=== PATIENT | male | born 1945 | race Caucasian/White ===

== ENCOUNTER 2017-05-03 14:25 | Emergency (ER) | payer OTHER ==
[2017-05-03 14:46] VITALS: BP 131/63
[2017-05-03] MEDS ORDERED: Lidocaine 1% 20 ML MDV INJECT ONE (14:48)
[2017-05-03] MEDS ORDERED: Bacitracin Oint 1 GM U/D Packet TOP ONE (14:48)
[2017-05-03] MEDS ORDERED: Diphtheria,Pertussis(Acell),Tetanus Vaccine 0.5 ML SDV IM ONE (14:51)
--- NOTE | 2017-05-03 15:02 | EDM.PDOC ---
ED HPI GENERAL MEDICAL PROBLEM - General Chief Complaint: Laceration Stated Complaint: CUT RT LEG W/CHAINSAW Time Seen by Provider: 05/03/17 14:59 Source of Information: Reports: Patient History Limitations: Reports: No Limitations - History of Present Illness INITIAL COMMENTS - FREE TEXT/NARRATIVE: pt was cutting wood and the saw slipped and he has a large cut above the rt knee. Onset: Today Duration: Hour(s): Location: Reports: Lower Extremity, Right Associated Symptoms: Reports: No Other Symptoms - Related Data Allergies Allergy/AdvReac Type Severity Reaction Status Date / Time No Known Allergies Allergy Verified 05/03/17 14:47 Home Meds: Home Meds Fenofibrate Nanocrystallized [Fenofibrate] 05/03/17 [History] Gabapentin [Neurontin] 05/03/17 [History] Levothyroxine 05/03/17 [History] Naproxen [Naproxen] 05/03/17 [History] Omeprazole [Omeprazole] 05/03/17 [History] Simvastatin [Zocor] 05/03/17 [History] Testosterone [Androgel] 05/03/17 [History] Past Medical History Cardiovascular History: Reports: High Cholesterol Endocrine/Metabolic History: Reports: Hypothyroidism Social & Family History - Tobacco Use Smoking Status *Q: Never Smoker ED ROS GENERAL - Review of Systems Review Of Systems: See Below Constitutional: Reports: No Symptoms HEENT: Reports: No Symptoms Respiratory: Reports: No Symptoms Endocrine: Reports: No Symptoms GI/Abdominal: Reports: No Symptoms : Reports: No Symptoms Skin: Reports: Other ( Laceration above the knee on the rt. ) Neurological: Reports: No Symptoms ED EXAM, SKIN/RASH Exam: See Below Text/Narrative:: pt has a 15 cm laceration above the rt knee. This did not go deep into the muscle but involved the subq. Exam Limited By: No Limitations General Appearance: Alert Extremities: Other (pt has a 14 cm chain saw laceration above the left knee. This was deep to the subq but did not involve the muscle. ) Course - Vital Signs Last Recorded V/S: Last Vital Signs Temp 36.0 C 05/03/17 14:53 Pulse 72 05/03/17 14:53 Resp 16 05/03/17 14:53 BP 131/63 05/03/17 14:53 Pulse Ox 94 L 05/03/17 14:53 - Orders/Labs/Meds Meds: Medications Discontinued Medications Generic Name Dose Route Start Last Admin Trade Name Freq PRN Reason Stop Dose Admin Bacitracin 1 dose 05/03/17 14:48 05/03/17 15:48 Bacitracin Oint 1 Gm TOP 05/03/17 14:49 1 dose ONETIME ONE Administration Diphtheria/Tetanus/Acell Pertussis 0.5 ml 05/03/17 14:51 Adacel IM 05/03/17 14:52 .ONCE ONE Lidocaine HCl 20 ml 05/03/17 14:48 05/03/17 15:48 Xylocaine 1% INJECT 05/03/17 14:49 20 ml ONETIME ONE Administration - Re-Assessments/Exams Free Text/Narrative Re-Assessment/Exam: 05/03/17 15:47 The wound was irrogated with 250 cc of saline and scrubbed well. The wound was infiltrated with 1% lidocaine. the wound was closed with chromic 5-0 and prolene 5-0. It was then dressed with a pressure dressing and bacatracin. A knee imoblizer was applied so he was not stressing the wound. 05/06/17 08:22 Departure - Departure Time of Disposition: 15:49 Disposition: Home, Self-Care 01 Condition: Fair Clinical Impression: Laceration - Discharge Information Instructions: Sutured Wound Care, [id number] Referrals: PCP,None [Primary Care Provider] - Forms: ED Department Discharge Care Plan Goals: keep dry , no further ointmnts, dress with a nonstick dressing. He should wrap with gauze and apply the knee imoblizer. He should have the stitches removed in 8-10 days. He will be placed on keflex to prevent infection. Tylenol 3 1 tab q6h prn for pain. Rtc if redness should develop.
== END 2017-05-03 16:26 | disposition home or self-care (01) ==
LOC: JP.ED 14:25
DX: S81.011A Laceration without foreign body, right knee, initial encounter (principal); Z23 Encounter for immunization; E78.00 Pure hypercholesterolemia, unspecified; E03.9 Hypothyroidism, unspecified; W29.3XXA Contact with powered garden and outdoor hand tools and machinery, initial encounter
CPT/HCPCS: 12005; 90471; 99283-25